=== PATIENT | female | born 1975 | race Caucasian/White ===

== ENCOUNTER 2024-04-23 12:34 | Outpatient (REF) | payer OTHER, SELFPAY ==
--- NOTE | ~2024-04-23 | MR_ITS ---
EXAMINATION: MR HIP WITH CONTRAST, RIGHT CLINICAL INFORMATION: Right hip pain and instability. Toe numbness. COMPARISON: Right hip fluoroscopic arthrography done earlier the same day. TECHNIQUE: MRI of the right hip was performed after the intra-articular administration of a dilute gadolinium-containing solution on a high-field scanner. FINDINGS: ACETABULAR LABRUM: Linear contrast within the undersurface of the anterosuperior labrum (sagittal image 17/26), consistent with a nondisplaced undersurface tear. ARTICULAR CARTILAGE/BONE: Anterosuperior acetabular articular cartilage full-thickness fissure with underlying subchondral cystic change and mild marrow edema. Tiny marginal osteophytes. No stress reaction, fracture, or avascular necrosis. Within the proximal femoral diametaphysis, there is a partially sclerotic, partially cystic focus measuring up to 1.9 cm without aggressive features. Findings could represent atypical appearance of an enchondroma or bone island. Mild bony prominence at the anterosuperior femoral head/neck junction. The alpha angle equals approximately 80 degrees as measured at the 3:00 position on the sagittal oblique images. The acetabular depth is within normal limits. MUSCLES/TENDONS: Mild gluteus minimus tendinosis. No transverse tendon tear or tendon retraction. JOINT FLUID/BURSA: Trace edema within the greater trochanteric bursa, consistent with minimal bursitis. INTRAPELVIC STRUCTURES: Unremarkable. MR/MR hip RT w con IMPRESSION: 1. Nondisplaced undersurface tear of the anterosuperior labrum. Mild bony prominence at the anterosuperior femoral head/neck junction which can be seen in the setting of cam-type femoroacetabular impingement. 2. Mild right hip osteoarthritis. 3. Mild gluteus minimus tendinosis. Minimal greater trochanteric bursitis. Electronically signed by: Samuel Martines MD 04/24/2024 11:43 AM EDT
--- NOTE | ~2024-04-23 | FL_ITS ---
RIGHT HIP FLUOROSCOPY GUIDED ARTHROGRAM INDICATIONS: Right hip pain. Intra-articular gadolinium injection is needed prior to MRI. PROCEDURE: Risks and benefits and possible complications were discussed with the patient and the consent form was signed. The patient was placed hip on the fluoroscopy table. The right hip was prepped and draped in normal sterile fashion. 1% buffered lidocaine was used for anesthesia. A 22-gauge spinal needle was used to access the right hip joint. Intra-articular position of the needle within the hip joint was verified using 3 cc of Omnipaque 300. A total of 10 mL of gadolinium/saline (1:200) contrast mixture was then injected into the hip joint. The needle was then removed and a Band-Aid was applied to the injection site. The patient tolerated the procedure well and was sent for to MRI. There were no immediate complications. FL/FL arthrogram hip RT IMPRESSION: Successful instillation of dilute intra-articular gadolinium into the right hip prior to MRI. The procedure was performed by Jorge A Fields PA-C, and directly supervised by Dr. Herzog. Electronically signed by: Catracho Herzog MD 04/23/2024 04:22 PM EDT
[2024-04-23] MEDS: gadobutroL 2 ML VIAL IVPUSH (14:09)
== END 2024-04-23 12:35 | disposition home or self-care (01) ==
LOC: HO.XRAY 12:34
PROVIDERS: PCP Family Medicine; Visit Provider Student in an Organized Health Care Education/Training Program
DX: S73.191A Other sprain of right hip, initial encounter (principal); M16.11 Unilateral primary osteoarthritis, right hip
CPT/HCPCS: 27093; 73525; 73722; A9585

== ENCOUNTER → 2024-04-23 13:10 | Outpatient (BNV) | payer OTHER, SELFPAY | PROVIDERS: PCP Family Medicine; Visit Provider Radiology Diagnostic Radiology | DX: M25.551 Pain in right hip (principal) | CPT/HCPCS: 27095; 73525 ==